=== PATIENT | female | born 1980 | race Caucasian/White ===

== ENCOUNTER → 2017-01-31 | Outpatient (CLI) | payer OTHER ==
[2017-01-31 12:03] LABS: Basophils % (A) 1 %; CH 29.8; Eosinophils # (A) 0.1 k/uL (0-0.7); Eosinophils % (A) 1 %; HCT 38.4 % (34.0-46.0); HGB 12.6 gm/dL (11.4-16.0); Luc # (Auto) 0.15; Luc % (Auto) 2; Lymphocytes # (A) 1.5 k/uL (1.0-4.8); Lymphocytes % (A) 25 %; MCH 29.9 pg (25.0-35.0); MCHC 32.9 g/dL (31.0-37.0); MCV 90.8 fL (80.0-100.0); Mean Platelet Volume 8.4; Monocytes # (A) 0.4 k/uL (0-1.0); Monocytes % (A) 6 %; Neutrophils % (A) 65 %; RBC 4.23 m/uL (3.80-5.40); RDW 12.7 % (11.5-15.5); WBC 6.2 k/uL (3.8-10.6); WBC (Perox) 6.29
== END | disposition home or self-care (01) ==
LOC: LABPAT 11:32
PROVIDERS: ATTEND Obstetrics & Gynecology
DX: Z01.812 Encounter for preprocedural laboratory examination (principal)
CPT/HCPCS: 36415; 85025

== ENCOUNTER → 2017-02-08 | Day surgery (SDC) | payer OTHER ==
[2017-02-01 09:42] VITALS: BMI 26.6
[~2017-02-08] MED LIST: DEXAMETHASONE SOD PHOSPHATE 10 MG/ML 1 ML VIAL IV ONE; KETOROLAC 30 MG/ML 1 ML VIAL ONE; LACTATED RINGERS 1,000 ML IV SCH; LIDOCAINE 1% 20 ML VIAL (10MG/ML) FOR IV START INTRADERMA PRN; LIDOCAINE 1% INJ 10MG/ML (20 ML MDV) ONE; MIDAZOLAM 2 MG/2 ML VIAL IV PRN; MIDAZOLAM 2 MG/2 ML VIAL ONE; ONDANSETRON 4 MG/2 ML VIAL IVP PRN; PROPOFOL 10 MG/ML 20 ML VIAL IV ONE; Pre Op ABX Message 1 EACH MISC MISCELLANE ONE; SCOPOLAMINE 1.5MG/72HR PATCH TRANSDERM ONE; fentaNYL (PF) 50 MCG/ML 2 ML AMP ONE
--- NOTE | 2017-02-08 06:47 | P.HPOB ---
History of Present Illness H&P Date: 02/08/17 Chief Complaint: YAMILEX 2 36 year old presents for LEEP due to YAMILEX 2. Review of Systems All systems: negative Constitutional: Denies chills, Denies fever Eyes: denies blurred vision, denies pain Ears, nose, mouth and throat: Denies headache, Denies sore throat Cardiovascular: Denies chest pain, Denies shortness of breath Respiratory: Denies cough Gastrointestinal: Denies abdominal pain, Denies diarrhea, Denies nausea, Denies vomiting Genitourinary: Denies dysuria, Denies hematuria Musculoskeletal: Denies myalgias Integumentary: Denies pruritus, Denies rash Neurological: Denies numbness, Denies weakness Psychiatric: Denies anxiety, Denies depression Endocrine: Denies fatigue, Denies weight change Past Medical History Past Medical History: No Reported History History of Any Multi-Drug Resistant Organisms: None Reported Past Surgical History: Section Past Anesthesia/Blood Transfusion Reactions: No Reported Reaction Past Psychological History: No Psychological Hx Reported Smoking Status: Former smoker Past Alcohol Use History: Occasional Additional Past Alcohol Use History / Comment(s): Smoked 1/2 PPD for 5 yrs, quit 10 yrs ago. Past Drug Use History: None Reported - Past Family History Mother Family Medical History: No Reported History Medications and Allergies Home Medications Medication Instructions Recorded Confirmed Type Pnv No.121/Iron/Folic Acid 1 each PO DAILY 02/01/17 02/01/17 History [ Multivitamin Tablet] Allergies Allergy/AdvReac Type Severity Reaction Status Date / Time No Known Allergies Allergy Verified 02/01/17 09:32 Exam Osteopathic Statement: *. No significant issues noted on an osteopathic structural exam other than those noted in the History and Physical/Consult. Heart: RRR Lungs: CTAB Abdomen: soft, nontender Extremeties: neg carli's Assessment and Plan (1) YAMILEX II (cervical intraepithelial neoplasia II) Status: Acute Plan: 1. LEEP
--- NOTE | 2017-02-08 07:53 | P.OP ---
Date of Procedure: 02/08/17 Preoperative Diagnosis: 1. YAMILEX II Postoperative Diagnosis: 1. YAMILEX II Procedure(s) Performed: LEEP Implants: Anesthesia: MAC Surgeon: Aparna Malagon Estimated Blood Loss (ml): 3 IV fluids (ml): 500 Urine output (ml): 5 Pathology: other (cervical cone) Condition: stable Disposition: PACU Indications for Procedure: Operative Findings: Description of Procedure: Patient is taken the operating room where general anesthesia was obtained without difficulty. She is prepped and draped in normal sterile fashion dorsal lithotomy position, legs placed in the candycane stirrups. Bladder was drained of all urine. Markham speculum placed in the vagina. The electrical loop was used to obtain a specimen first swipe was made from right to left for the anterior lip and then a sweep was made from right to left of the posterior lip and another strip was made for the endocervix. This was switched out for the ball cautery. The crater of the cervix was then cauterized to obtaining hemostasis and cauterized the crater left. Monsel solution was then placed for excellent hemostasis. Patient tolerated the procedure well, sponge and instrument counts were correct 2. She was taken to recovery room in stable condition.
[2017-02-08 08:02] VITALS: TEMP 97
[2017-02-08] MEDS: HYDROmorphone 1 MG/ML 1 ML SYRINGE IVP PRN ×2 (08:12→08:17)
[2017-02-08 09:51] VITALS: BP 118/89; PULSE 67; RESP 20
== END ==
LOC: OR 06:25
PROVIDERS: ATTEND Obstetrics & Gynecology
DX: N87.1 Moderate cervical dysplasia (principal); Z87.891 Personal history of nicotine dependence
CPT/HCPCS: 81025; 88307; 57522; J2250; J1100; J2405; J2001; J3010; J1885; J1170; J2704

== ENCOUNTER 2018-01-04 06:58 | Inpatient (IN) | payer OTHER ==
[2018-01-04] MEDS ORDERED: METHYLERGONOVINE 0.2 MG/ML 1 ML AMP IM PRN (07:13)
[2018-01-04] MEDS ORDERED: OXYTOCIN 10 UNIT/ML 1 ML VIAL IM PRN (07:13)
[2018-01-04] MEDS ORDERED: TERBUTALINE 1 MG/ML VIAL SQ PRN (07:13)
[2018-01-04] MEDS ORDERED: LIDOCAINE 1% (PF) 10 MG/ML (30 ML SDV) SQ PRN (07:13)
[2018-01-04] MEDS ORDERED: CARBOPROST TROMETHAMINE 250 MCG/ML 1 ML AMP IM PRN (07:13)
[2018-01-04 07:38] LABS: Basophils % (A) 0 %; Eosinophils # (A) 0.1 k/uL (0-0.7); Eosinophils % (A) 1 %; HCT 34.4 % (34.0-46.0); Lymphocytes # (A) 1.5 k/uL (1.0-4.8); Lymphocytes % (A) 19 %; MCH 31.3 pg (25.0-35.0); MCHC 34.7 g/dL (31.0-37.0); MCV 90.1 fL (80.0-100.0); Mean Platelet Volume 9.8; Monocytes # (A) 0.6 k/uL (0-1.0); Monocytes % (A) 7 %; Neutrophils # (A) 5.8 k/uL (1.3-7.7); Neutrophils % (A) 71 %; Platelet Count 184 k/uL (150-450); RBC 3.82 m/uL (3.80-5.40); RDW 13.5 % (11.5-15.5); WBC 8.2 k/uL (3.8-10.6)
[2018-01-04] MEDS: OXYTOCIN 20 UNITS/1000 ML NS 1,000 ML IV SCH (07:43)
[2018-01-04] MEDS: LACTATED RINGERS 1,000 ML IV SCH ×3 (07:44→22:30)
[2018-01-04] MEDS ORDERED: AMPICILLIN 2,000 MG in SODIUM CHLORIDE 0.9% 100 ML IVPB STA (07:55)
[2018-01-04 08:05] VITALS: BMI 33.1
[2018-01-04] MEDS: AMPICILLIN 1,000 MG in SODIUM CHLORIDE 0.9% 50 ML IVPB SCH ×4 (11:58→23:46)
--- NOTE | 2018-01-04 17:20 | P.HPOB ---
History of Present Illness H&P Date: 01/04/18 Chief Complaint: Induction of Labor 37-year-old presents at 41 weeks and 2 days for induction of labor. Her cervix is 1 cm dilated, 70% effaced, and -2 station. She is not rosalba. heart tones are 135-140 with moderate variability and reactive. She did have a previous section. The risks of vaginal after section were reviewed with the patient and her boyfriend extensively. Review of Systems All systems: negative Constitutional: Denies chills, Denies fever Eyes: denies blurred vision, denies pain Ears, nose, mouth and throat: Denies headache, Denies sore throat Cardiovascular: Denies chest pain, Denies shortness of breath Respiratory: Denies cough Gastrointestinal: Denies abdominal pain, Denies diarrhea, Denies nausea, Denies vomiting Genitourinary: Denies dysuria, Denies hematuria Musculoskeletal: Denies myalgias Integumentary: Denies pruritus, Denies rash Neurological: Denies numbness, Denies weakness Psychiatric: Denies anxiety, Denies depression Endocrine: Denies fatigue, Denies weight change Past Medical History Past Medical History: No Reported History Additional Past Medical History / Comment(s): Obstetric history: First was a section for failure of induction of labor. This is her second and she's had care with me since 6 weeks gestation. Blood type is O+, amylase negative, rubella immune, RPR nonreactive , hepatitis B negative, HIV nonreactive, toxoplasmosis negative. Normal anatomy ultrasound, normal 1 hour glucose tolerance test. History of Any Multi-Drug Resistant Organisms: None Reported Past Surgical History: Section Additional Past Surgical History / Comment(s): LEEP procedure-2017 Past Anesthesia/Blood Transfusion Reactions: No Reported Reaction Past Psychological History: No Psychological Hx Reported Smoking Status: Former smoker Past Alcohol Use History: None Reported Additional Past Alcohol Use History / Comment(s): smoked 5 years /ppd quit 2004 Past Drug Use History: None Reported - Past Family History Mother Family Medical History: No Reported History Medications and Allergies Home Medications Medication Instructions Recorded Confirmed Type Pnv No.121/Iron/Folic Acid 1 each PO DAILY 02/01/17 01/03/18 History [ Multivitamin Tablet] Allergies Allergy/AdvReac Type Severity Reaction Status Date / Time No Known Allergies Allergy Verified 01/03/18 14:39 Exam Osteopathic Statement: *. No significant issues noted on an osteopathic structural exam other than those noted in the History and Physical/Consult. - Vital Signs Vital signs: Vital Signs Temp Pulse Resp BP Pulse Ox 01/04/18 07:27 96.6 F L 101 H 18 121/88 99 Intake and Output 01/04/18 01/04/18 01/04/18 06:59 14:59 22:59 Other: # Voids 2 Weight 90.628 kg Heart: Regular rate and rhythm Lungs: Clear to auscultation bilaterally Abdomen: Soft, nontender Extremities: Negative Homans sign Results Result Diagrams: 01/04/18 07:20 Assessment and Plan (1) with 41 completed weeks gestation Current Visit: Yes Status: Acute Code(s): Z3A.41 - 41 WEEKS GESTATION OF SNOMED Code(s): 16872997 (2) Previous section Current Visit: Yes Status: Acute Code(s): Z98.891 - HISTORY OF UTERINE SCAR FROM PREVIOUS SURGERY SNOMED Code(s): 696330079 Plan: 1. Admit to family place 2. Induction of labor with amniotomy and Pitocin 3. Anticipate normal vaginal delivery
[2018-01-04] MEDS ORDERED: BUPIVACAINE (PF) 0.25% 30 ML VIAL ONE (22:11)
[2018-01-04] MEDS ORDERED: SODIUM CHLORIDE 0.9% 100 ML BAG ONE (22:11)
[2018-01-04] MEDS ORDERED: fentaNYL (PF) 50 MCG/ML 5 ML AMP ONE (22:11)
[2018-01-04] MEDS ORDERED: ROPIVACAINE 100 MG, fentaNYL (PF) 200 MCG in SODIUM CHLORIDE 0.9% 76 ML EPIDURAL ONE (22:28)
[2018-01-05] MEDS: AMPICILLIN 1,000 MG in SODIUM CHLORIDE 0.9% 50 ML IVPB SCH ×4 (03:39→18:37)
[2018-01-05] MEDS: LACTATED RINGERS 1,000 ML IV SCH ×4 (04:24→22:56)
[2018-01-05] MEDS: OXYTOCIN 20 UNITS/1000 ML NS 1,000 ML IV SCH (05:54)
[2018-01-05] MEDS ORDERED: CITRIC ACID-SODIUM CITRATE 15 ML CUP PO ONE (14:11)
[2018-01-05] MEDS ORDERED: ONDANSETRON 4 MG/2 ML VIAL ONE (14:19)
[2018-01-05] MEDS ORDERED: ceFAZolin 1,000 MG VIAL ONE (14:19)
[2018-01-05] MEDS ORDERED: NALBUPHINE 10 MG/ML VIAL (10ML MDV) ONE (14:19)
[2018-01-05] MEDS ORDERED: OXYTOCIN 10 UNIT/ML 1 ML VIAL ONE (14:19)
[2018-01-05] MEDS ORDERED: KETOROLAC 30 MG/ML 1 ML VIAL ONE (14:19)
[2018-01-05] MEDS ORDERED: LACTATED RINGERS 1,000 ML BAG IV ONE (14:19)
[2018-01-05] MEDS ORDERED: MORPHINE SULFATE (PF) 0.3 MG/0.3 ML SYR ONE (14:19)
[2018-01-05] MEDS ORDERED: ceFAZolin IN SWFI 2 GM/20 ML SYRINGE IVP ONE (14:27)
[2018-01-05] MEDS ORDERED: diphenhydrAMINE 50 MG/ML 1 ML VIAL IVP PRN ×3 (15:04→16:00)
[2018-01-05] MEDS ORDERED: NALBUPHINE 10 MG/ML VIAL (10ML MDV) IV PRN (15:04)
[2018-01-05] MEDS ORDERED: MORPHINE SULFATE 2 MG/ML SYRINGE IVP PRN (15:04)
[2018-01-05] MEDS ORDERED: NALOXONE 0.4 MG/ML 1 ML VIAL IV PRN ×2 (15:04→16:00)
[2018-01-05] MEDS ORDERED: diphenhydrAMINE 25 MG CAP PO PRN (16:00)
[2018-01-05] MEDS ORDERED: OXYTOCIN 20 UNITS/1000 ML NS 1,000 ML IV SCH (16:00)
[2018-01-05] MEDS ORDERED: diphenhydrAMINE 50 MG CAP PO PRN (16:00)
[2018-01-05] MEDS ORDERED: ZOLPIDEM 5 MG TAB PO PRN (16:00)
[2018-01-05] MEDS ORDERED: ONDANSETRON 4 MG/2 ML VIAL IVP PRN (16:00)
[2018-01-05] MEDS ORDERED: METOCLOPRAMIDE 5 MG/ML 2 ML VIAL IVP PRN (16:00)
[2018-01-05] MEDS ORDERED: DIPH,PERTUS(ACELL)TETVAC-LF 0.5 ML VIAL IM ONE (17:47)
[2018-01-05] MEDS: SENNOSIDES-DOCUSATE SODIUM 1 EACH TAB PO SCH (21:56)
[2018-01-05] MEDS: KETOROLAC 30 MG/ML 1 ML VIAL IVP PRN (22:51)
[2018-01-06] MEDS: LACTATED RINGERS 1,000 ML IV SCH ×6 (02:21→20:05)
[2018-01-06 05:48] LABS: Basophils % (A) 0 %; Eosinophils # (A) 0.2 k/uL (0-0.7); Eosinophils % (A) 1 %; HCT 26.8 % (34.0-46.0); Lymphocytes % (A) 7 %; MCH 31.6 pg (25.0-35.0); MCHC 33.8 g/dL (31.0-37.0); MCV 93.3 fL (80.0-100.0); Mean Platelet Volume 9.6; Monocytes # (A) 0.8 k/uL (0-1.0); Monocytes % (A) 5 %; Neutrophils # (A) 11.7 k/uL (1.3-7.7); Neutrophils % (A) 84 %; Platelet Count 156 k/uL (150-450); RBC 2.87 m/uL (3.80-5.40); RDW 13.8 % (11.5-15.5)
[2018-01-06 05:54] LABS: HGB 9.1 gm/dL (11.4-16.0)
[2018-01-06] MEDS: KETOROLAC 30 MG/ML 1 ML VIAL IVP PRN ×2 (06:27→12:32)
--- NOTE | 2018-01-06 07:39 | P.OP ---
Date of Procedure: 01/05/18 Preoperative Diagnosis: 1. at 41 weeks 3 days 2. previous 3. failed Postoperative Diagnosis: 1. at 41 weeks 3 days 2. previous 3. failed Procedure(s) Performed: Repeat low transverse Anesthesia: spinal Surgeon: Aparna Malagon Yarn Cleaner #1: Savanah Kirkland Estimated Blood Loss (ml): 500 IV fluids (ml): 900 Urine output (ml): 100 Pathology: none sent Condition: stable Disposition: floor Indications for Procedure: 37-year-old presented at 41 weeks and 3 days for induction of labor. Her cervix was 1 cm dilated 70% effaced and -2 station. She was not rosalba. heart tones 140-145 with moderate variability and reactive. Amniotomy was performed at 7:24 AM on 01/04/2018. Pitocin was also started. She progressed slowly throughout the day while increasing the Pitocin. heart tones remained 140-145 with moderate variability and reactive, there were accelerations and no decelerations. Her cervix was not completely until 11:33 AM the following morning. She pushed for 2 hours and made little descent. Informed consent was obtained and section was called. Operative Findings: Viable female, Apgars 8, 9, weight 8 lbs. 15 oz. delivered from the OP position. Description of Procedure: Patient was taken to the operating room where spinal anesthesia was found be adequate. She was prepped and draped in normal sterile fashion in dorsal supine position with a leftward tilt. Pfannenstiel skin incision was made the scalpel and carried through to the underlying layer of fascia with the scalpel. Fascia was incised in midline and carried bilaterally with the Estrada scissors. The superior aspect of the fascial incision was grasped with Malu clamps elevated and the underlying rectus muscles dissected off with the Estrada's. Attention was then turned to inferior aspect of same incision which in a similar fashion was grasped tented up and the underlying rectus muscles dissected off with the Estrada's. The rectus muscles were the midline and the peritoneum was identified tented up and entered sharply with the scalpel. The incision was extended superiorly and inferiorly with good visualization of the bladder. There were extensive peritoneal adhesions from the anterior abdominal wall to the uterus. These were carefully taken down with the Metzenbaums. The bladder blade was inserted and the vesicouterine peritoneum was incised the Metzenbaums then carried bilaterally and bladder flap created digitally. A low transverse incision was then made on the uterus with the scalpel. This was carried bilaterally and digital manner. Infant's head delivered atraumatically in OP position, nose and mouth bulb suctioned, cord clamped and cut, infant handed off to waiting nurses. Apgars 8,9, weight 8 lbs. 15 oz. Placenta delivered manually, intact with three-vessel cord. The uterus is exteriorized and cleared of all clots and debris. The uterine incision was closely inspected and seen to have extended inferiorly, and a piece of the uterus had avulsed from the left side and inferior portion and was attached to the right side of the uterus still. The inferior tear was closed with 0 Vicryl in a running locked fashion. The inferior aspect of the evulsed portion of the uterus was closed with 0 Vicryl in a running locked fashion. The uterine incision was then was closed with 0 Vicryl in a running locked fashion. Second layer of the same sutures used in imbricating fashion to obtain excellent hemostasis. Both ovaries and tubes appeared normal. The uterus was placed back into the abdomen. The peritoneum was reapproximated using 2-0 Vicryl in a running fashion. The muscles were reapproximated using 2- 0 Vicryl in interrupted fashion. The fascia was reapproximated using 0 Vicryl in a running fashion. The subcutaneous tissues closed with 3-0 Vicryl running fashion. The skin was closed flor. Patient tolerated the procedure well, sponge and instrument counts were correct times 2 and she was taken to the recovery room in stable condition.
[2018-01-06] MEDS ORDERED: HYDROcodone/APAP 7.5-325MG 1 EACH TAB PO PRN (07:40)
--- NOTE | 2018-01-06 07:40 | P.PNOBGPC ---
Subjective - Subjective Principal diagnosis: Status post repeat low transverse POD#1 Interval history: Patient seen and examined. Denies nausea, vomiting, chest pain, shortness of breath or calf pain. Patient reports: Reports appetite normal, Reports voiding normally, Reports pain well controlled, Reports ambulating normally : doing well Objective - Vital Signs Latest vital signs: Vital Signs Temp Pulse Resp BP Pulse Ox 01/06/18 05:36 18 01/06/18 04:00 98 F 93 18 110/67 97 01/06/18 02:00 18 01/06/18 00:45 98.0 F 85 16 108/69 97 01/05/18 22:00 20 01/05/18 20:00 98.3 F 87 18 98/62 97 01/05/18 18:04 18 01/05/18 17:19 96.6 F L 76 18 88/56 99 01/05/18 16:49 77 18 100/67 99 01/05/18 16:19 86 18 95/65 98 01/05/18 16:04 77 17 86/49 97 01/05/18 15:49 100 18 95/54 97 01/05/18 15:34 88 17 86/54 98 01/05/18 15:19 96.5 F L 86 15 79/47 98 Intake and Output 01/05/18 01/06/18 01/06/18 22:59 06:59 14:59 Output Total 200 400 Balance -200 -400 Output: Urine 200 400 Other: Voiding Method Indwelling Catheter # Voids 0 - Exam Lungs: bilateral: normal Chest: Normal S1, Normal S2 Extremities: Present: normal Abdomen: Present: normal appearance, soft. Absent: distention, tenderness Incision: Present: normal, dry, intact Uterus: Present: normal, firm - Labs Labs: Abnormal Lab Results - Last 24 Hours (Table) 01/06/18 Range/Units 05:37 WBC 14.0 H (3.8-10.6) k/uL RBC 2.87 L (3.80-5.40) m/uL Hgb 9.1 L D (11.4-16.0) gm/dL Hct 26.8 L (34.0-46.0) % Neutrophils # 11.7 H (1.3-7.7) k/uL Assessment and Plan (1) with 41 completed weeks gestation Current Visit: Yes Status: Resolved Code(s): Z3A.41 - 41 WEEKS GESTATION OF SNOMED Code(s): 01504083 (2) Previous section Current Visit: Yes Status: Resolved Code(s): Z98.891 - HISTORY OF UTERINE SCAR FROM PREVIOUS SURGERY SNOMED Code(s): 017102277 (3) Status post repeat low transverse section Current Visit: Yes Status: Acute Code(s): Z98.891 - HISTORY OF UTERINE SCAR FROM PREVIOUS SURGERY SNOMED Code(s): 950768858 Plan: 1. Increase ambulation 2. Regular diet 3. Oral pain medication
[2018-01-06] MEDS: SENNOSIDES-DOCUSATE SODIUM 1 EACH TAB PO SCH ×2 (09:54→19:42)
--- NOTE | 2018-01-06 12:54 | P.PN ---
Progress Note - Text Date: 01/06/2015 Time: 07 The patient is status post section Vital signs stable VAS: 0-10 Patient has no complaints of pain. The patient incurred some minimal itching yesterday, this itching is now subsiding. Pain meds to be managed by service.
[2018-01-06] MEDS: ACETAMINOPHEN TAB 325 MG TAB PO PRN ×2 (16:03→22:18)
[2018-01-06] MEDS: IBUPROFEN 600 MG TAB PO PRN (19:24)
[2018-01-07] MEDS: IBUPROFEN 600 MG TAB PO PRN ×2 (08:06→18:32)
[2018-01-07] MEDS: SENNOSIDES-DOCUSATE SODIUM 1 EACH TAB PO SCH (08:06)
--- NOTE | 2018-01-07 09:12 | P.DS ---
Providers Date of admission: 01/04/18 06:58 Expected date of discharge: 01/07/18 Attending physician: Aparna Malagon Primary care physician: Stated None Hospital Course: Patient is doing very well post op day 2. She is ambulating, voiding, and she is tolerating her diet. She voices no complaints. She is requesting discharge home today. Vital signs are stable and she is afebrile. On physical exam heart is regular, lungs are clear, extremities without pain. Abdomen is soft and nontender. Positive bowel sounds are noted. Incision is otherwise clean dry and intact will plan to have flor removed on Tuesday by Dr. Malagon. Discharge instructions were thoroughly reviewed and all questions are answered for her prior to her discharge. Prescription for Motrin and [place] has been provided. All other questions are answered for her at this time and she is stable for discharge this time. Patient Condition at Discharge: Good Plan - Discharge Summary Discharge Rx Participant: Yes New Discharge Prescriptions: New HYDROcodone/APAP 5-325MG [[place] 5-325] 1 tab PO Q4HR PRN 3 Days #18 tab PRN Reason: Pain Ibuprofen [Motrin] 600 mg PO Q6HR PRN #30 tab PRN Reason: Pain No Action Pnv No.121/Iron/Folic Acid [ Multivitamin Tablet] 1 each PO DAILY Discharge Medication List Pnv No.121/Iron/Folic Acid [ Multivitamin Tablet] 1 each PO DAILY [History] HYDROcodone/APAP 5-325MG [[place] 5-325] 1 tab PO Q4HR PRN 3 Days #18 tab [Rx] Ibuprofen [Motrin] 600 mg PO Q6HR PRN #30 tab 01/07/18 [Rx] Follow up Appointment(s)/Referral(s): Aparna Malagon DO [Doctor of Osteopathic Medicine] - 01/09/18 Activity/Diet/Wound Care/Special Instructions: No heavy lifting, limit stairs and driving, and pelvic rest. If any high temperatures, heavy bleeding, or severe pain call my office Discharge Disposition: HOME SELF-CARE
[2018-01-07 09:22] VITALS: PULSE 101; RESP 18
[2018-01-07] MEDS: ACETAMINOPHEN TAB 325 MG TAB PO PRN (14:27)
[2018-01-07 17:35] VITALS: BP 119/81; TEMP 98
== END 2018-01-07 18:41 | disposition home or self-care (01) | DRG 766 ==
LOC: 4FBP 06:58
PROVIDERS: ADMIT Obstetrics & Gynecology; ATTEND Obstetrics & Gynecology
PROC: 10D00Z1 Extraction of Products of Conception, Low, Open Approach (ICD-10-PCS; principal; 2018-01-06)
PROC: 0DNW0ZZ Release Peritoneum, Open Approach (ICD-10-PCS; 2018-01-06)
PROC: 3E033VJ Introduction of Other Hormone into Peripheral Vein, Percutaneous Approach (ICD-10-PCS; 2018-01-06)
PROC: 10907ZC Drainage of Amniotic Fluid, Therapeutic from Products of Conception, Via Natural or Artificial Opening (ICD-10-PCS; 2018-01-06)
DX: O34.211 Maternal care for low transverse scar from previous cesarean delivery (principal); O48.0 Post-term pregnancy; O99.62 Diseases of the digestive system complicating childbirth; K66.0 Peritoneal adhesions (postprocedural) (postinfection); Z37.0 Single live birth; Z3A.41 41 weeks gestation of pregnancy; Z87.891 Personal history of nicotine dependence
CPT/HCPCS: 85025; 86850; 86900; 86901; 90471; 90715

== ENCOUNTER → 2024-02-02 | Outpatient (CLI) | payer OTHER ==
--- NOTE | 2024-02-05 14:48 | MM ---
Reason for Exam: Screening (asymptomatic). Baseline mammogram. Patient History: Menarche at age 18. First Full-Term at age 33. Late child-bearing (after 32). Patient has history of breast feeding. Maternal grandmother had breast cancer, age 66. Risk Values: Armida 5 year model risk: 0.8%. NCI Lifetime model risk: 12.4%. Prior Study Comparison: Patient's first Mammogram. Tissue Density: There are scattered areas of fibroglandular density. Findings: Analyzed By CAD. The pattern is symmetrical. Skin tags on the left. No suspicious groups of microcalcifications, spiculated or lobular masses, architectural distortion or other secondary signs of malignancy are mammographically apparent. Overall Assessment: Benign, BI-RAD 2 Management: Screening Mammogram of both breasts in 1 year. A negative mammogram report should not preclude additional follow up of suspicious palpable abnormalities. Patient should continue monthly self breast exam. A clinical breast exam by your physician is recommended on an annual basis and results should be correlated with mammographic findings. Note on Armida scores and lifetime risk: 1. A Armida score greater than 3% is considered moderate risk. If this is the case, consider specialist referral to assess eligibility for a risk reducing agent. 2. If overall lifetime risk for the development of breast cancer is 20% or higher, the patient may qualify for future screening with alternating mammogram and breast MRI. Electronically signed and approved by: Tom Haskins D.O. Radiologis
== END | disposition home or self-care (01) ==
LOC: RADMAMWWP 14:36
PROVIDERS: ATTEND Family Medicine
DX: Z12.31 Encounter for screening mammogram for malignant neoplasm of breast (principal); R92.323 Mammographic fibroglandular density, bilateral breasts; Z80.3 Family history of malignant neoplasm of breast
CPT/HCPCS: 77067